=== PATIENT | female | born 1935 ===

== ENCOUNTER → 2018-12-24 10:47 | Outpatient (CLI) | payer MEDICARE, SELFPAY ==
--- NOTE | 2018-12-24 | DI.CT.S_ITS ---
PROCEDURE: CT ABDOMEN PELVIS W CON INDICATIONS: EPIGASTRIC AND LEFT LOWER QUAD PAIN TECHNIQUE: After the administration of oral and intravenous contrast, 5 mm thick sections acquired from the diaphragms to the symphysis. 5 mm thick coronal and sagittal reformats were performed. For radiation dose reduction, the following was used: automated exposure control, adjustment of mA and/or kV according to patient size. COMPARISON: None. FINDINGS: Image quality: Excellent. ABDOMEN: Lung bases: Lung bases are clear. Heart size is normal. Solid organs: Liver is normal in size and enhancement. Gallbladder is surgically absent. Biliary system is non-dilated. Pancreas enhances normally. Spleen is normal in size and enhancement. No adrenal nodules. Kidneys are normal in size and enhancement, without hydronephrosis. Occasional small corticomedullary cystic structures. Peritoneum and bowel: Distal stomach wall demonstrates mild circumferential thickening. The stomach is otherwise fairly decompressed. No perigastric inflammation. The small bowel, and colon loops are normal in caliber and wall thickness. Occasional sigmoid diverticulosis. No free fluid or air. Nodes and vessels: No retroperitoneal or mesenteric adenopathy. Aorta and inferior vena cava are normal in caliber. Moderate calcific atherosclerosis. Miscellaneous: No ventral hernias. PELVIS: Genitourinary: Bladder wall thickness is normal. The uterus is age-appropriate. The pelvic floor demonstrates mild laxity with prolapse of the rectum. Miscellaneous: No inguinal hernias small bilateral inguinal lymph nodes. Bones: No suspicious bony lesions. Severe degenerative disc height loss in the thoracolumbar region. No vertebral body compression fractures. IMPRESSION: 1. Changes of mild wall thickening of the gastric antrum suggesting peptic ulcer disease. Correlate clinically and consider upper endoscopy if indicated. 2. Occasional sigmoid diverticulosis without acute diverticulitis. 3. Post cholecystectomy without significant horn expected biliary dilatation. 4. Pelvic floor laxity with probable mild rectal prolapse. Correlate clinically. Dictated by: Montserrat Whitten M.D. on 12/24/2018 at 14:57 Approved by: Montserrat Whitten M.D. on 12/24/2018 at 15:06
== END ==
PROVIDERS: PCP Family Medicine; Visit Provider Internal Medicine Gastroenterology
DX: R10.13 Epigastric pain (principal); R10.32 Left lower quadrant pain; R19.8 Other specified symptoms and signs involving the digestive system and abdomen; N81.89 Other female genital prolapse; K57.30 Diverticulosis of large intestine without perforation or abscess without bleeding; Z90.49 Acquired absence of other specified parts of digestive tract
CPT/HCPCS: 74177; Q9967

== ENCOUNTER → 2020-07-20 15:45 | Outpatient (CLI) | payer MEDICARE, SELFPAY | PROVIDERS: PCP Family Medicine; Visit Provider Physician Assistant Medical | DX: R68.83 Chills (without fever) (principal) | CPT/HCPCS: 87086 ==

== ENCOUNTER 2020-08-10 13:35 | Inpatient (IN) | payer MEDICARE, SELFPAY ==
[2020-08-10] VITALS (14 sets, daily range): BP systolic 177–220; BP diastolic 61–91; PULSE 40–75; RESP 16–38; TEMP 35.9–36.7; O2SAT 95–99; BMI 31.2
--- NOTE | 2020-08-10 13:49 | DI.RAD.S_ITS ---
PROCEDURE: XR CHEST 1V INDICATIONS: chest pain TECHNIQUE: One view of the chest was acquired. COMPARISON: [facility] ([place]), CR, XR CHEST 2V, 07/20/2020, 16:05. FINDINGS: Surgical changes and devices: None. Lungs and pleura: Lungs are large in volume, and there is a chronic interstitial prominence but no definite source of new chest pain is seen.. No pleural effusions or pneumothorax. Mediastinum: Mediastinal contours appear normal. Heart size is normal. Bones and chest wall: No suspicious bony lesions. Overlying soft tissues appear unremarkable. IMPRESSION: Suspect COPD, but no source of new chest pain is seen. Dictated by: Donny Dorsey M.D. on 08/10/2020 at 15:07 Approved by: Donny Dorsey M.D. on 08/10/2020 at 15:07
[2020-08-10 13:58] LABS: Add Manual Diff / Slide Review NO; Basophils Absolute Auto 100 /uL (0-100); Basophils Percent Auto 1.1 % (0-2); Eosinophils Absolute Auto 100 /uL (0-450); Eosinophils Percent Auto 0.9 % (2-4); Hematocrit 29.9 % (36-46); Hemoglobin 9.8 g/dL (12.0-16.0); Lymphocytes Absolute Auto 2700 /uL (1100-4500); Lymphocytes Percent Auto 32.7 % (25-40); Mean Corpuscular HGB Conc 32.8 % (30-36); Mean Corpuscular Hemoglobin 30.9 PG (26-34); Mean Corpuscular Volume 94.2 fL (80-100); Monocytes Absolute Auto 600 /uL (0-900); Monocytes Percent Auto 7.7 % (3-14); Neutrophils Absolute Auto 4700 /uL (1500-7000); Neutrophils Percent Auto 57.6 % (50-75); Platelet Count 238 X10^3/uL (150-400); Red Blood Cell Count 3.17 X10^6/uL (4.0-5.2); Red Cell Distribution Width 12.8 % (11.6-14.8); White Blood Cell Count 8.2 X10^3/uL (4.5-11.0)
--- NOTE | 2020-08-10 14:05 | PC.NURSE ---
Pt started on hydralazine and labetolol 08/05/20. Pt is feeling SOB with exertion and lying down. Pt having what she describes as palpiation feeling in chest,denies pain. Pt also having urinary retention. Pt arrived here today hypertensive bp over 200 systolic.
[2020-08-10 14:09] LABS: Alanine Aminotransferase 28 IU/L (<35); Albumin 3.8 g/dL (3.5-5.0); Albumin Globulin Ratio 1.2 (1.0-2.8); Alkaline Phosphatase 61 U/L (38-126); Aspartate Aminotransferase 32 IU/L (14-36); BUN Creatinine Ratio 18.6 (6-22); Bilirubin Total 0.3 mg/dL (0.2-1.3); Blood Urea Nitrogen 48 mg/dL (7-17); Carbon Dioxide 16 mmol/L (22-32); Chloride 99 mmol/L (98-107); Creatine Kinase 87 U/L (30-135); Estimated Glomerular Filt Rate 17.6 mL/min (>60); Globulin 3.2 g/dL (1.7-4.1); Glucose 238 mg/dL (80-110); HEMOLYSIS 36 (0-50); Lipase 139 U/L (23-300); Sodium 126 mmol/L (137-145)
[2020-08-10 14:16] LABS: Potassium 5.6 mmol/L (3.4-5.1)
--- NOTE | 2020-08-10 14:16 | ED_ITS ---
HPI - Chest Pain General Chief Complaint: Chest Pain Stated Complaint: on beta blockers, adverse reactions, BP, HR low Time Seen by Provider: 08/10/20 13:52 Source: patient and family Mode of arrival: Wheelchair History of Present Illness HPI narrative: Patient is an 85-year-old female who presents of riding of complaints. Home she was started on labetalol 100 mg by her fuel management handler Dr. Ward is fever 2 days ago. She has taken 2 doses and since then she has gotten dizzy and lightheaded and her blood pressure has decreased to systolic in the 90s. She has not taken any yet today and is noted to be quite hypertensive with systolic persistently in the 200s. She also is more short of breath than usual. Yesterday she started having shortness of breath with exertion with mild chest discomfort. She needed to sleep in a recliner which is very atypical for her. She currently is not having any chest pain. She has no fever chills cough or other symptoms MD complaint: chest pain Related Data Home Medications Medication Instructions Recorded Confirmed amlodipine 2.5 mg tablet 2.5 mg PO DAILY 07/20/20 08/10/20 ascorbic acid (vitamin C) 500 mg 500 mg PO DAILY 07/20/20 08/10/20 capsule aspirin 81 mg chewable tablet 81 mg PO DAILY 07/20/20 08/10/20 furosemide 20 mg tablet 40 mg PO DAILY tab 07/20/20 08/10/20 glimepiride 4 mg tablet 4 mg PO BID tab 07/20/20 08/10/20 hydralazine 10 mg tablet See Rx Instructions .ROUTE 07/20/20 08/10/20 .COMPLEX tab isosorbide mononitrate 30 mg 30 mg PO DAILY 07/20/20 08/10/20 tablet,extended release 24 hr levothyroxine 75 mcg tablet 75 mcg PO QAM 07/20/20 08/10/20 loratadine 10 mg tablet 10 mg PO DAILY 07/20/20 08/10/20 losartan 50 mg tablet 50 mg PO BID 07/20/20 08/10/20 magnesium oxide 500 mg tablet 500 mg PO DAILY 07/20/20 08/10/20 metformin 500 mg tablet 1,000 mg PO BID tab 07/20/20 08/10/20 [id number] tablet 1 tab PO DAILY 07/20/20 08/10/20 pantoprazole 40 mg tablet,delayed 40 mg PO DAILY 07/20/20 08/10/20 release pyridoxine (vitamin B6) 25 mg 25 mg PO DAILY 07/20/20 08/10/20 tablet simvastatin 10 mg tablet 10 mg PO QPM 07/20/20 08/10/20 triamcinolone acetonide 55 mcg 1 spray INTRANASAL DAILY 07/20/20 08/10/20 nasal spray aerosol Allergies Allergy/AdvReac Type Severity Reaction Status Date / Time penicillin G [PENICILLIN G] Allergy Severe Anaphylactic Verified 08/10/20 14:04 Shock Review of Systems Review of Systems ROS Unobtainable: All systems reviewed & are unremarkable except as noted in HPI and below Constitutional Constitutional: Denies chills, Denies fever(s), Denies lethargy and Denies weakness ENT Ears, Nose, Mouth, and Throat: Denies dizziness Cardiovascular Cardiovascular: Reports as per HPI, Reports chest pain (yesterday), Reports syncope, Denies irregular heart rhythm, Reports lightheadedness (not now), Reports dyspnea, Reports dyspnea on exertion and Reports orthopnea Respiratory Respiratory: Reports dyspnea and Reports dyspnea on exertion Gastrointestinal Gastrointestinal: Denies abdominal pain, Denies change in bowel habits, Denies diarrhea, Denies nausea and Denies vomiting Musculoskeletal Musculoskeletal: Denies back pain and Denies myalgias Integumentary/Breasts Skin/Breast: Denies pruritus, Denies erythema, Denies rash and Denies wounds Neurologic Neurologic: Denies dizziness, Reports syncope and Denies weakness Patient History Medical History Diabetes Hypertension Kidney failure Social History household members: none Smoking Status: Never smoker alcohol intake: never Smoking Status: Never smoker Exam Initial Vital Signs Initial Vital Signs: Vital Signs Temperature 98.1 F 08/10/20 13:45 Pulse Rate 52 L 08/10/20 13:45 Respiratory Rate 22 08/10/20 13:45 Blood Pressure 220/87 H 08/10/20 13:45 Pulse Oximetry 97 08/10/20 13:45 GENERAL: Alert pleasant 85-year-old female and in no acute distress. HEENT: Head atraumatic,EOMI, pupils reactive, face symmetric, moist mucous memb ranes CARDIOVASCULAR: Regular rate and rhythm without murmurs, rubs or gallops. RESPIRATORY: Breath sounds equal bilaterally, no wheezes rales or rhonchi. ABDOMEN: Soft, nontender. Normoactive bowel sounds all 4 quadrants. No guarding or rebound. EXTREMITIES: Normal range of motion, no clubbing or edema. Neurovascularly intact NEUROLOGICAL: Alert and oriented x4.Normal gait and speech. SKIN: Warm, dry, no laceration, no petechiae, no rashes or lesions. Course Orders Ordered: ED Orders 08/10/20 13:49 XR chest 1V Stat EKG-12 Lead Stat 08/10/20 13:52 Complete Blood Count AUTO DIFF Stat Comprehensive Metabolic Panel Stat D Dimer Stat Lipase Stat NT-proBNP (BNP-Adult 18+) Stat Troponin & CK Cardiac Panel Stat 08/10/20 13:58 TSH w/ Reflex to FT4 Stat 08/10/20 14:11 COVID19 - ADMIT ([employer] swab/PCR) Stat Discontinued Medications Amlodipine Besylate (Amlodipine 5 Mg Tablet) 7.5 mg PO NOW ONE Stop: 08/10/20 15:11 Last Admin: 08/10/20 15:20 Dose: 7.5 mg Documented by: HAILEY Furosemide (Furosemide 40 Mg/4 Ml Vial) 20 mg IV NOW ONE Stop: 08/10/20 15:11 Last Admin: 08/10/20 15:20 Dose: 20 mg Documented by: HAILEY Vital Signs Vital signs: Vital Signs - 8 hr 08/10/20 13:45 08/10/20 13:47 08/10/20 14:00 Temperature 98.1 F Pulse Rate 52 L 55 L 47 L Respiratory Rate 22 38 H 23 Blood Pressure 220/87 H Pulse Oximetry 97 98 99 08/10/20 14:01 08/10/20 14:15 08/10/20 14:30 Temperature Pulse Rate 49 L 45 L 42 L Respiratory Rate 25 H 19 21 Blood Pressure 213/91 H 216/84 H Pulse Oximetry 98 99 98 08/10/20 14:31 08/10/20 14:45 08/10/20 15:00 Temperature Pulse Rate 42 L 42 L 40 L Respiratory Rate 22 17 19 Blood Pressure 188/91 H 183/84 H 199/83 H Pulse Oximetry 98 98 98 08/10/20 15:30 Temperature Pulse Rate 61 Respiratory Rate 28 H Blood Pressure Pulse Oximetry 99 MDM - Chest Pain Lab Data Attestation: I reviewed the patient's lab results. Result diagrams: 08/10/20 13:52 08/10/20 13:52 Labs: Lab Results 08/10/20 08/10/20 08/10/20 Range/Units 13:52 13:52 13:52 WBC 8.2 (4.5-11.0) X10^3/uL RBC 3.17 L (4.0-5.2) X10^6/uL Hgb 9.8 L (12.0-16.0) g/dL Hct 29.9 L (36-46) % MCV 94.2 (80-100) fL MCH 30.9 (26-34) PG MCHC 32.8 (30-36) % RDW 12.8 (11.6-14.8) % Plt Count 238 (150-400) X10^3/uL Neut % (Auto) 57.6 (50-75) % Lymph % (Auto) 32.7 (25-40) % [place] % (Auto) 7.7 (3-14) % Eos % (Auto) 0.9 L (2-4) % Baso % (Auto) 1.1 (0-2) % Neut # (Auto) 4700 (6544-3003) /uL Lymph # (Auto) 2700 (2715-5062) /uL [place] # (Auto) 600 (0-900) /uL Eos # (Auto) 100 (0-450) /uL Baso # (Auto) 100 (0-100) /uL D-Dimer (<230) ng/mL Sodium 126 L (137-145) mmol/L Potassium 5.6 H (3.4-5.1) mmol/L Chloride 99 (98-107) mmol/L Carbon Dioxide 16 L (22-32) mmol/L BUN 48 H (7-17) mg/dL Creatinine 2.58 H (0.52-1.04) mg/dL Estimated GFR 17.6 L (>60) mL/min BUN/Creatinine Ratio 18.6 (6-22) Glucose 238 H (80-110) mg/dL Calcium 9.0 (8.4-10.2) mg/dL Total Bilirubin 0.3 (0.2-1.3) mg/dL AST 32 (14-36) IU/L ALT 28 (<35) IU/L Alkaline Phosphatase 61 (38-126) U/L Total Creatine Kinase 87 (30-135) U/L CK-MB (CK-2) TNP CK-MB (CK-2) Rel Index TNP Troponin I 0.019 (0.01-0.034) ng/mL NT-Pro-B Natriuret Pep 2950 H (<450) pg/mL Total Protein 7.0 (6.3-8.2) g/dL Albumin 3.8 (3.5-5.0) g/dL Globulin 3.2 (1.7-4.1) g/dL Albumin/Globulin Ratio 1.2 (1.0-2.8) Lipase 139 (23-300) U/L TSH (0.47-4.68) uIU/mL Urine RBC (0-5/HPF) Urine WBC (0-5/HPF) Ur Squamous Epith Cells (0-5/HPF) Ur Transition Epith Cell (0-5/HPF) Ur Renal Epithelial Cell (0-1/HPF) Urine Bacteria (None) Hyaline Casts (None) Ur Culture Indicated? SARS-CoV-2 (PCR) (Negative) 08/10/20 08/10/20 08/10/20 Range/Units 13:52 13:58 14:11 WBC (4.5-11.0) X10^3/uL RBC (4.0-5.2) X10^6/uL Hgb (12.0-16.0) g/dL Hct (36-46) % MCV (80-100) fL MCH (26-34) PG MCHC (30-36) % RDW (11.6-14.8) % Plt Count (150-400) X10^3/uL Neut % (Auto) (50-75) % Lymph % (Auto) (25-40) % [place] % (Auto) (3-14) % Eos % (Auto) (2-4) % Baso % (Auto) (0-2) % Neut # (Auto) (4376-0754) /uL Lymph # (Auto) (5617-6320) /uL [place] # (Auto) (0-900) /uL Eos # (Auto) (0-450) /uL Baso # (Auto) (0-100) /uL D-Dimer 523 H (<230) ng/mL Sodium (137-145) mmol/L Potassium (3.4-5.1) mmol/L Chloride (98-107) mmol/L Carbon Dioxide (22-32) mmol/L BUN (7-17) mg/dL Creatinine (0.52-1.04) mg/dL Estimated GFR (>60) mL/min BUN/Creatinine Ratio (6-22) Glucose (80-110) mg/dL Calcium (8.4-10.2) mg/dL Total Bilirubin (0.2-1.3) mg/dL AST (14-36) IU/L ALT (<35) IU/L Alkaline Phosphatase (38-126) U/L Total Creatine Kinase (30-135) U/L CK-MB (CK-2) CK-MB (CK-2) Rel Index Troponin I (0.01-0.034) ng/mL NT-Pro-B Natriuret Pep (<450) pg/mL Total Protein (6.3-8.2) g/dL Albumin (3.5-5.0) g/dL Globulin (1.7-4.1) g/dL Albumin/Globulin Ratio (1.0-2.8) Lipase (23-300) U/L TSH 1.61 (0.47-4.68) uIU/mL Urine RBC (0-5/HPF) Urine WBC (0-5/HPF) Ur Squamous Epith Cells (0-5/HPF) Ur Transition Epith Cell (0-5/HPF) Ur Renal Epithelial Cell (0-1/HPF) Urine Bacteria (None) Hyaline Casts (None) Ur Culture Indicated? SARS-CoV-2 (PCR) Negative (Negative) 08/10/20 Range/Units 15:20 WBC (4.5-11.0) X10^3/uL RBC (4.0-5.2) X10^6/uL Hgb (12.0-16.0) g/dL Hct (36-46) % MCV (80-100) fL MCH (26-34) PG MCHC (30-36) % RDW (11.6-14.8) % Plt Count (150-400) X10^3/uL Neut % (Auto) (50-75) % Lymph % (Auto) (25-40) % [place] % (Auto) (3-14) % Eos % (Auto) (2-4) % Baso % (Auto) (0-2) % Neut # (Auto) (7546-3794) /uL Lymph # (Auto) (6953-7806) /uL [place] # (Auto) (0-900) /uL Eos # (Auto) (0-450) /uL Baso # (Auto) (0-100) /uL D-Dimer (<230) ng/mL Sodium (137-145) mmol/L Potassium (3.4-5.1) mmol/L Chloride (98-107) mmol/L Carbon Dioxide (22-32) mmol/L BUN (7-17) mg/dL Creatinine (0.52-1.04) mg/dL Estimated GFR (>60) mL/min BUN/Creatinine Ratio (6-22) Glucose (80-110) mg/dL Calcium (8.4-10.2) mg/dL Total Bilirubin (0.2-1.3) mg/dL AST (14-36) IU/L ALT (<35) IU/L Alkaline Phosphatase (38-126) U/L Total Creatine Kinase (30-135) U/L CK-MB (CK-2) CK-MB (CK-2) Rel Index Troponin I (0.01-0.034) ng/mL NT-Pro-B Natriuret Pep (<450) pg/mL Total Protein (6.3-8.2) g/dL Albumin (3.5-5.0) g/dL Globulin (1.7-4.1) g/dL Albumin/Globulin Ratio (1.0-2.8) Lipase (23-300) U/L TSH (0.47-4.68) uIU/mL Urine RBC None seen (0-5/HPF) Urine WBC 5-10/hpf H (0-5/HPF) Ur Squamous Epith Cells 0-1 /hpf (0-5/HPF) Ur Transition Epith Cell 1-5/hpf (0-5/HPF) Ur Renal Epithelial Cell 0-1/hpf (0-1/HPF) Urine Bacteria None seen (None) Hyaline Casts 0-1/lpf (None) Ur Culture Indicated? Specimen cultured SARS-CoV-2 (PCR) (Negative) Urine Dip Bedside Urine Glucose Negative Bedside Urine Bilirubin - Negative Bedside Urine Ketone - Negative Urine Specific [place] 1.025 Bedside Urine Occult Blood - Negative Bedside Urine pH 6.0 Bedside Urine Protein +++ 300 Bedside Urine Urobilinogen - Negative Bedside Urine Nitrite - Negative Bedside Urine Leukocytes - Negative Esterase Imaging Data Chest x-ray: Radiologist's Impression: PROCEDURE: XR CHEST 1V INDICATIONS: chest pain TECHNIQUE: One view of the chest was acquired. COMPARISON: [facility] ([place]), CR, XR CHEST 2V, 07/20/2020, 16:05. FINDINGS: Surgical changes and devices: None. Lungs and pleura: Lungs are large in volume, and there is a chronic interstitial prominence but no definite source of new chest pain is seen.. No pleural effusions or pneumothorax. Mediastinum: Mediastinal contours appear normal. Heart size is normal. Bones and chest wall: No suspicious bony lesions. Overlying soft tissues appear unremarkable. IMPRESSION: Suspect COPD, but no source of new chest pain is seen. Dictated by: Donny Dorsey M.D. on 08/10/2020 at 15:07 ECG Data Attestation: I personally reviewed and interpreted this ECG as follows: Interpretation: Normal sinus rhythm rate 44 p.r. interval 158 QRS is [address] changes or T-wave inversions MDM Narrative Medical decision making narrative: The patient initially bradycardic in the 40s and significantly hypertensive persistently with systolic in the 200s. I spoke with Cardiology who states stopping labetalol and increasing amlodipine. Patient's renal function has worsened daughter has records from [facility] 05/17/2020 creatinine at that time was 1.8, BUN 31, sodium 132, potassium 5.4, chloride 100, bicarb 22 and glucose 118. Creatinine today is elevated at 2.6 with an elevated BUN of 48 and sodium of 126. Patient is noted to still be quite hypertensive with worsening creatinine. Differential diagnosis includes congestive heart failure, hypertensive emergency with increasing creatinine Discussed with Dr. urias who accepts patient for admission Discharge Plan Departure Patient Disposition: Admitted as Observation Clinical Impression: Hypertensive urgency, Acute kidney injury, Diastolic congestive heart failure Admit Date/Time: 08/10/20 16:04 Admit Provider: Jacy Urias
[2020-08-10 14:17] LABS: NT-proBNP (BNP-Adult 18+) 2950 pg/mL (<450)
[2020-08-10 14:20] LABS: Troponin I 0.019 ng/mL (0.01-0.034)
[2020-08-10 14:40] LABS: D Dimer 523 ng/mL (<230)
[2020-08-10 15:11] LABS: COVID19 - ADMIT (NP swab/PCR) Negative (Negative)
[2020-08-10 15:13] LABS: TSH w/ Reflex to FT4 1.61 uIU/mL (0.47-4.68)
[2020-08-10] MEDS: FUROSEMIDE 40 MG/4 ML VIAL 20 MG IV (15:20)
[2020-08-10] MEDS: AMLODIPINE 5 MG TABLET 7.5 MG PO (15:20)
[2020-08-10 17:45] LABS: Bacteria Urine None Seen; RBC Urine None Seen (0-5/HPF)
[2020-08-10 17:59] LABS: WBC Urine 5-10/HPF (0-5/HPF)
[2020-08-10 18:00] LABS: Renal Epithelial Cells Urine 0-1/HPF (0-1/HPF); Transitional Epi Cells Urine 1-5/HPF (0-5/HPF)
[2020-08-10 18:01] LABS: Culture Indicated Urine Specimen Cultured; Hyaline Casts Urine 0-1/LPF; Squamous Epithelial Cell Urine 0-1 /HPF (0-5/HPF)
--- NOTE | 2020-08-10 18:57 | PC.NURSE ---
Addendum entered by Olivia Cruz R.N. 08/10/20 22:40: Pt up to bathroom for bowel movement and states pain is improving to epigastric region. Back into bed and lasix administered with commode at bedside for pt's use overnight. Provided pt with brief which pt is able to place on self. Encouraged to call for needs. Foods and oral fluids provided as ordered and per pt request. Addendum entered by Olivia Cruz R.N. 08/10/20 20:13: Hospitalist Gonzalez in to see patient. Addendum entered by Olivia Cruz R.N. 08/10/20 20:04: Resting quietly in bed with eyes closed. Dr. Urias has reviewed EKG. Awaiting stat cardiac enzyme result. Will use commode moving forward. Addendum entered by Olivia Cruz R.N. 08/10/20 19:09: Lab in to draw stat labs. Original Note: Pt to room 225 from E.R. via stretcher. Is slightly hard of hearing, but able to make needs and wants known to staff members. Physical assessment completed and when asked about pain, pt states having gastric pain. Places hand on epigastric region. Pt states experienced shortness of breath panting upon return to bed following toileting. Pt reports these complaints are improving with rest. LEATHER SOFTENER, Klaudia, evaluates telemetry strip and brings it to the attention of this software writer. Dr. Urias was given telemetry strip as well as informed of pt's symptoms. R.T. called and stat 12 lead EKG completed and provided to Dr. Urias.
[2020-08-10 19:52] LABS: Creatine Kinase 106 U/L (30-135)
[2020-08-10 20:04] LABS: Troponin I 0.018 ng/mL (0.01-0.034)
[2020-08-10 20:08] LABS: CKMB % Relative Index 1.1 % (1.5-5.0); Creatine Kinase MB 1.21 ng/mL (<2.37)
[2020-08-10] MEDS: SODIUM CHLORIDE 0.9% FLUSH 10 ML IV ×2 (20:41→21:49)
[2020-08-10 21:22] LABS: Magnesium 1.7 mg/dL (1.6-2.3); Phosphorous 4.8 mg/dL (2.8-4.1)
[2020-08-10 21:37] LABS: Hemoglobin A1C% w Est Avg Glu 6.7 % (4.0-6.0)
--- NOTE | 2020-08-10 21:40 | P.HP_ITS ---
History of Present Illness History of Present Illness Date Patient Seen: 08/10/20 Time Patient Seen: 20:30 Chief complaint: on beta blockers, adverse reactions, BP, HR low Narrative: Tom Gandhi is an 85 y.o. female with a history of Grade 2 diastolic heart failure, resistent hypertension, diabetes type 2 presented from [facility] after being referred by the clinic nurse to the ED with a hypertensive urgency and a new acute kidney injury. She stated she was recently started on a beta- janet and has felt nauseous for the past 3 days and was sick to my stomach since yesterday. She was initiated on labetalol 100 mg by her trade recruiter Dr. Hess 2 days ago. She has taken 2 doses and since then, has gotten dizzy and lightheaded and daughter stated her blood pressure has decreased to systolic in the 90s. She has not taken any yet today and is noted to be quite hypertensive with systolic persistently in the 200s. She complains of being shorter of breath than usual. Stated she has had lower than usual appetite and has chronic nocturnal leg cramps. Yesterday she started having shortness of breath with exertion with mild chest discomfort. She needed to sleep in a recliner which is not usual for her. She currently is not having any chest pain. She has no fever chills cough, dysurea, diarrhea or constipation. Today's EKG indicated a left bundle branch block, per note from , her trade recruiter, she had a left bundle branch block in an EKG done in July of 2019 which at that time was new. Chest x-ray ordered in the emergency department indicated large lung volumes suggesting COPD an elderly female without a smoking history. She is afebrile, blood pressure 179/70 it had been as high as 220/87 in the emergency department, heart rate 64, respiratory rate 16, oxygen saturation of 99% on room air, she weighs 71.6 kg with a BMI of 31.2. She has mildly anemia at with a hemoglobin and hematocrit of 9.8 and 29.9 respectively, platelet count is 238, D-dimer was 523 which is negative for patient of her age, sodium 126, potassium 5.6, chloride 99, CO2 16, BUN 48, creatinine 2.58 with a GFR of 17.6, glucose 238, hemoglobin A1c is 6.7, phosphorus is 4.8, CK-MB was 1.1, proBNP was 29 50, UA was negative for UTI and COVID-19 PCR is negative. Patient's med records were scanned into the chart which included labs and an encounter from April of 2020 as well as a note from Dr. Hess. She has been on multiple blood pressure medications, not always maxed out and he commented that it was hard to keep her blood pressure under good control without her becoming symptomatic. She had impaired renal function as of April of this year with a creatinine of 1.18 and a GFR of 42, it is significantly reduced from this today and she also has an elevated phosphorus. I did discuss her case with Dr. Talamantes, on-call trade recruiter at [facility] cardiology and he recommended diuresis, controlling her blood pressure, and treating her ELIAZAR. Dr. Hess noted that she had grade 2 diastolic dysfunction in an echocardiogram done in 2017 which we do not have access to. Patient History Medical History (HFpEF) heart failure with preserved ejection fraction Diabetes History of anesthesia reaction Hypertension Hypothyroidism Kidney failure Surgical History History of cholecystectomy History of right knee joint replacement Family & Social History Family History Mother History of CVA (cerebrovascular accident) Father Myocardial infarction Social History: household members none Prior Living Arrangements House Safety & Behavioral: Feels Safe in Current Yes Environment Been Physically Hurt or No Threatened By a Person Suicidal Ideation Description None Suicide Plan Description No Plan Tobacco & Substance use: Smoking Status Never smoker alcohol intake never Substance Use Type does not use Meds Home Medications and Allergies Home Medications Medication Instructions Recorded Confirmed Type amlodipine 2.5 mg tablet 2.5 mg PO DAILY 07/20/20 08/10/20 History ascorbic acid (vitamin C) 500 mg 500 mg PO DAILY 07/20/20 08/10/20 History capsule aspirin 81 mg chewable tablet 81 mg PO DAILY 07/20/20 08/10/20 History furosemide 20 mg tablet 40 mg PO DAILY tab 07/20/20 08/10/20 History glimepiride 4 mg tablet 4 mg PO BID tab 07/20/20 08/10/20 History hydralazine 10 mg tablet See Rx Instructions .ROUTE 07/20/20 08/10/20 History .COMPLEX tab isosorbide mononitrate 30 mg 30 mg PO DAILY 07/20/20 08/10/20 History tablet,extended release 24 hr levothyroxine 75 mcg tablet 75 mcg PO QAM 07/20/20 08/10/20 History loratadine 10 mg tablet 10 mg PO DAILY 07/20/20 08/10/20 History losartan 50 mg tablet 50 mg PO BID 07/20/20 08/10/20 History magnesium oxide 500 mg tablet 500 mg PO DAILY 07/20/20 08/10/20 History metformin 500 mg tablet 1,000 mg PO BID tab 07/20/20 08/10/20 History elcapacrmtbh-szwmgcjo-fmvjrr tablet 1 tab PO DAILY 07/20/20 08/10/20 History pantoprazole 40 mg tablet,delayed 40 mg PO DAILY 07/20/20 08/10/20 History release pyridoxine (vitamin B6) 25 mg 25 mg PO DAILY 07/20/20 08/10/20 History tablet simvastatin 10 mg tablet 10 mg PO QPM 07/20/20 08/10/20 History triamcinolone acetonide 55 mcg 1 spray INTRANASAL DAILY 07/20/20 08/10/20 History nasal spray aerosol Allergies Allergy/AdvReac Type Severity Reaction Status Date / Time penicillin G [PENICILLIN G] Allergy Severe Anaphylactic Verified 08/10/20 14:04 Shock Review of Systems Review of Systems ROS: Yes All systems reviewed with the patient and are negative except as otherwise documented Exam Vital Signs (past 8 hours): - 08/10/20 13:45 08/10/20 13:47 08/10/20 14:00 Temperature 98.1 F Pulse Rate 52 L 55 L 47 L Respiratory Rate 22 38 H 23 Blood Pressure 220/87 H Pulse Oximetry 97 98 99 08/10/20 14:01 08/10/20 14:15 08/10/20 14:30 Temperature Pulse Rate 49 L 45 L 42 L Respiratory Rate 25 H 19 21 Blood Pressure 213/91 H 216/84 H Pulse Oximetry 98 99 98 08/10/20 14:31 08/10/20 14:45 08/10/20 15:00 Temperature Pulse Rate 42 L 42 L 40 L Respiratory Rate 22 17 19 Blood Pressure 188/91 H 183/84 H 199/83 H Pulse Oximetry 98 98 98 08/10/20 15:30 08/10/20 18:08 08/10/20 20:04 Temperature 97.5 F L 96.6 F L Pulse Rate 61 75 64 Respiratory Rate 28 H 18 16 Blood Pressure 215/79 H 179/70 H Pulse Oximetry 99 95 99 Oxygen Delivery Method Room Air Narrative Exam Narrative: Gen: Alert, oriented, chronically ill appearing 85 y.o. [place] female, NAD HEENT: normocephalic, atraumatic, conjunctiva clear, sclera non-icteric, oral mucosa pink and moist Neck: supple, full ROM, no JVD, trachea is midline Resp: Lungs CTA, non-labored breathing CV: RRR, no murmur or rubs Abd: soft, non-tender, normoactive BTs Skin: no lesions or rashes, dry and intact Neuro: Alert and oriented X 4 w/no focal deficits. Speech clear and coherent. Extremities: mild LE edema, moves all 4 extremities, is ambulatory, negative Miranda?s sign Psyche: Very pleasant, normal mood and affect. Objective Labs Result Diagrams: 08/10/20 13:52 08/10/20 13:52 Labs: Laboratory Results - last 24 hr 08/10/20 08/10/20 08/10/20 13:52 13:52 13:52 WBC 8.2 RBC 3.17 L Hgb 9.8 L Hct 29.9 L MCV 94.2 MCH 30.9 MCHC 32.8 RDW 12.8 Plt Count 238 Neut % (Auto) 57.6 Lymph % (Auto) 32.7 [place] % (Auto) 7.7 Eos % (Auto) 0.9 L Baso % (Auto) 1.1 Neut # (Auto) 4700 Lymph # (Auto) 2700 [place] # (Auto) 600 Eos # (Auto) 100 Baso # (Auto) 100 D-Dimer Sodium 126 L Potassium 5.6 H Chloride 99 Carbon Dioxide 16 L BUN 48 H Creatinine 2.58 H Estimated GFR 17.6 L BUN/Creatinine Ratio 18.6 Glucose 238 H Hemoglobin A1c Calcium 9.0 Phosphorus Magnesium Total Bilirubin 0.3 AST 32 ALT 28 Alkaline Phosphatase 61 Total Creatine Kinase 87 CK-MB (CK-2) TNP CK-MB (CK-2) Rel Index TNP Troponin I 0.019 NT-Pro-B Natriuret Pep 2950 H Total Protein 7.0 Albumin 3.8 Globulin 3.2 Albumin/Globulin Ratio 1.2 Lipase 139 TSH Urine RBC Urine WBC Ur Squamous Epith Cells Ur Transition Epith Cell Ur Renal Epithelial Cell Urine Bacteria Hyaline Casts Ur Culture Indicated? SARS-CoV-2 (PCR) 08/10/20 08/10/20 08/10/20 13:52 13:52 13:58 WBC RBC Hgb Hct MCV MCH MCHC RDW Plt Count Neut % (Auto) Lymph % (Auto) [place] % (Auto) Eos % (Auto) Baso % (Auto) Neut # (Auto) Lymph # (Auto) [place] # (Auto) Eos # (Auto) Baso # (Auto) D-Dimer 523 H Sodium Potassium Chloride Carbon Dioxide BUN Creatinine Estimated GFR BUN/Creatinine Ratio Glucose Hemoglobin A1c 6.7 H Calcium Phosphorus Magnesium Total Bilirubin AST ALT Alkaline Phosphatase Total Creatine Kinase CK-MB (CK-2) CK-MB (CK-2) Rel Index Troponin I NT-Pro-B Natriuret Pep Total Protein Albumin Globulin Albumin/Globulin Ratio Lipase TSH 1.61 Urine RBC Urine WBC Ur Squamous Epith Cells Ur Transition Epith Cell Ur Renal Epithelial Cell Urine Bacteria Hyaline Casts Ur Culture Indicated? SARS-CoV-2 (PCR) 08/10/20 08/10/20 08/10/20 14:11 15:20 19:23 WBC RBC Hgb Hct MCV MCH MCHC RDW Plt Count Neut % (Auto) Lymph % (Auto) [place] % (Auto) Eos % (Auto) Baso % (Auto) Neut # (Auto) Lymph # (Auto) [place] # (Auto) Eos # (Auto) Baso # (Auto) D-Dimer Sodium Potassium Chloride Carbon Dioxide BUN Creatinine Estimated GFR BUN/Creatinine Ratio Glucose Hemoglobin A1c Calcium Phosphorus Magnesium Total Bilirubin AST ALT Alkaline Phosphatase Total Creatine Kinase 106 CK-MB (CK-2) 1.21 CK-MB (CK-2) Rel Index 1.1 L Troponin I 0.018 NT-Pro-B Natriuret Pep Total Protein Albumin Globulin Albumin/Globulin Ratio Lipase TSH Urine RBC None seen Urine WBC 5-10/hpf H Ur Squamous Epith Cells 0-1 /hpf Ur Transition Epith Cell 1-5/hpf Ur Renal Epithelial Cell 0-1/hpf Urine Bacteria None seen Hyaline Casts 0-1/lpf Ur Culture Indicated? Specimen cultured SARS-CoV-2 (PCR) Negative 08/10/20 08/10/20 19:23 19:23 WBC RBC Hgb Hct MCV MCH MCHC RDW Plt Count Neut % (Auto) Lymph % (Auto) [place] % (Auto) Eos % (Auto) Baso % (Auto) Neut # (Auto) Lymph # (Auto) [place] # (Auto) Eos # (Auto) Baso # (Auto) D-Dimer Sodium Potassium Chloride Carbon Dioxide BUN Creatinine Estimated GFR BUN/Creatinine Ratio Glucose Hemoglobin A1c Calcium Phosphorus 4.8 H Magnesium 1.7 Total Bilirubin AST ALT Alkaline Phosphatase Total Creatine Kinase CK-MB (CK-2) CK-MB (CK-2) Rel Index Troponin I NT-Pro-B Natriuret Pep Total Protein Albumin Globulin Albumin/Globulin Ratio Lipase TSH Urine RBC Urine WBC Ur Squamous Epith Cells Ur Transition Epith Cell Ur Renal Epithelial Cell Urine Bacteria Hyaline Casts Ur Culture Indicated? SARS-CoV-2 (PCR) Assessment & Plan Assessment & Plan narrative: Tom Gandhi will be admitted for treatment and management of hypertensive urgency and and further workup of acute kidney injury unknown if with CKD. 1. Hypertensive urgency, acute, present on admission * She will receive as needed IV labetalol as well as IV Lasix for diuresis * Telemetry and continuous pulse oximetry, monitor for shortness of breath * First 2 troponins were negative 2. Acute kidney injury, present on admission with a creatinine of 2.58 and a GFR of 17.6 * This is concerning for contributing to her resistant hypertension. I have ordered a renal ultrasound to rule out MINOO. * She has an elevated phosphorus of 4.8, she is not taking bisphosphonates or chemotherapy that could cause hyperphosphatemia * I have ordered a PTH * May need nephrology consult. 3. History of Grade 2 heart failure * I have ordered a complete echocardiogram for the morning * Discussion with Dr. Talamantes who recommended pharmacological stress testing, will defer to day team on this * She is ordered for morning dose of IV Lasix 40 mg. She received IV Lasix 20 mg in the ED. 4. Diabetes type 2 with apparent good control since April of this year * Her A1c was 6.7 down from 7.1 in April * She will be on low-dose insulin correction scale 5. Hyponatremia, acute, present on admission * In April she had a low sodium of 132 and today it is 126. * I have her on a fluid restriction of 1200 mL per day with a normal sodium carb controlled diet * Urine sodium, urine and serum osmolality pending. VTE prophylaxis: Wells risk score: 0 Heparin 5000 units subcu b.i.d. Consults: none, may require nephrology and cardiology consult. Patient is admitted under inpatient status with expected length of stay greater than 2 midnights due to severity of presenting symptoms, risk of adverse event, and complexity of treatment plan. FEN: IV saline lock, normal sodium , C/BMP and magnesium in the am. Dispo: probable discharge to home Code Status: Full as discussed with patient. Her daughter Raquel Gandhi is her POA and surrogate. Scores Wells' Criteria for PE Clinical signs and symptoms of DVT: No PE is #1 Dx or equally likely: No Heart rate > 100: No Immobilization at least 3 days or surg in previous 4 weeks: No History of PE or DVT: No Hemoptysis: No Malignancy w/Treatment within 6 months or palliative: No Wells' PE Score total: 0 Quality MIPS - Admit I confirm the patient?s Advance Care Plan is present, Code status is documented, Surrogate decision maker is in patient?s record [If Yes, STOP here]: Yes MIPS - DC The patient has current or prior documentation of left ventricular ejection fraction (LVEF) less than 40%, or moderate or severely depressed left ventricular systolic function.: No A. The patient was prescribed or already taking an Angiotensin-Converting Enzyme (CECELIA) Inhibitor, or Angiotensin Receptor Janet (ARB).: Yes B. The patient was prescribed or already taking a beta-janet. [If Yes to Both A & B, STOP here]: Yes Patient not prescribed/taking CECELIA or ARB for medical/patient/system reason(s) including (ex: allergy, intolerance, contraindication).: Holding due to new ELIAZAR. Patient not prescribed/taking Beta-janet for medical/patient/system reason(s) including (ex: allergy, intolerance, contraindication).: Holding as patient is having side effects from beta blockers
[2020-08-10] MEDS: ATORVASTATIN 20 MG TABLET 10 MG PO (21:47)
[2020-08-10] MEDS: HEPARIN 5,000 UNIT/ML VIAL 5000 UNIT SUBCUT (21:48)
[2020-08-10] MEDS: FUROSEMIDE 40 MG/4 ML VIAL IV (21:49)
[2020-08-11] VITALS (9 sets, daily range): BP systolic 134–187; BP diastolic 52–76; PULSE 63–73; RESP 14–18; TEMP 36.3–37; O2SAT 94–99
--- NOTE | 2020-08-11 | DI.ECHO.S_ITS ---
[facility]---------+ [facility] +---------+ : : [address] : [address] : : : : [id number] : : : : Phone: [phone]+ Echocardiogram Report + + :Name: GRETTA LOPES Study Date: 08/11/2020 Height: 61 in : :[facility] ReadingLocation: Weight: 157 lb : : Gender: Female BSA: 1.7 m2 : :: 1935 Age: 85 yrs BP: 179/70 mmHg: :Reason For Study: HISTORY OF GRADE TWO HEART FAILURE : :Ordering Physician: Karina ROQUEformed By: Ekta Bingham : :Referring: ROSI ROQUE : + + Interpretation Summary The ejection fraction is estimated to be 60-65%. There is mild mitral regurgitation. There is mild aortic regurgitation. Procedure: A two-dimensional transthoracic echocardiogram with color flow and Doppler was performed. The study quality was technically adequate. There is no prior echocardiogram noted for this patient. The patient was in sinus rhythm with heart rates between 59-75 bpm during the exam. Left Ventricle: The left ventricle is normal in size. There is mild concentric left ventricular hypertrophy. Proximal septal thickening is noted. There is no echo evidence for significant left ventricular outflow tract obstruction. The ejection fraction is estimated to be 60-65%. Left ventricular wall motion is normal. Diastolic parameters suggest a pseudonormalization pattern, consistent with probable elevated filling pressures. Right Ventricle: The right ventricle is normal size. Right ventricular systolic function is mildly reduced. Atria: The left atrium is mildly dilated. Right atrial size is normal. There is no Doppler evidence for an interatrial shunt. Mitral Valve: The mitral valve is normal in structure and function. There is mild mitral annular calcification. There is mild mitral regurgitation. Aortic Valve: The aortic valve is trileaflet. The aortic valve opens well. The aortic valve is slightly calcified. There is no aortic valve stenosis. There is mild aortic regurgitation. Tricuspid Valve: The tricuspid valve is normal in structure and function. There is mild tricuspid regurgitation. Pulmonary artery pressures cannot be estimated because of the lack of a measurable TR jet velocity but the IVC suggests a CVP of around 3 mmHg. Pulmonic Valve: The pulmonic valve leaflets are thin and pliable; valve motion is normal. There is no pulmonic valvular regurgitation. Great Vessels: The aortic root is normal size. The ascending aorta could not be visualized. The IVC is of normal diameter and collapses greater than 50% with a sniff. This suggests a low right atrial pressure of 3 mm Hg. Pericardium/ Pleura There is no pericardial effusion. There is no pleural effusion. MMode/2D Measurements & Calculations LVIDd: 4.2 cm LVOT diam: 1.9 cm LVIDs: 2.7 cm Ao root diam: 2.6 cm FS: 36.4 % Ao Arch Diam (Prox Trans): 2.1 cm IVSd: 1.2 cm LVPWd: 1.1 cm LV hussein. diameter/BSA (cm/m^2): 2.5 LV sys. diameter/BSA (cm/m^2): 1.6 LA A2 area: 20.6 cm2 RA long axis: 4.6 cm LA A4 area: 16.7 cm2 RA area: 14.0 cm2 LA length (vol): 4.9 cm RA vol: 36.7 ml LA vol: 59.7 ml RA : 21.6 ml/m2 LA vol index: 35.0 ml/m2 IVC diam: 1.6 cm RVD1 (basal): 2.9 cm TAPSE: 1.4 cm Doppler Measurements & Calculations Ao V2 max: 121.5 cm/sec LVOT Max Jordi: 100.5 cm/sec Ao V2 mean: 82.9 cm/sec LV V1 max P.0 mmHg Ao max P.9 mmHg LV V1 VTI: 23.5 cm Ao mean P.1 mmHg RITCHIE(I,D): 2.2 cm2 Ao V2 VTI: 29.3 cm RITCHIE(V,D): 2.3 cm2 sev ratio: 0.80 RITCHIE indexed to BSA (cm^2/m^2): 1.3 MV E max jordi: 104.5 cm/sec PA V2 max: 112.9 cm/sec MV A max jordi: 84.4 cm/sec PA V2 mean: 77.9 cm/sec MV E/A: 1.2 PA mean P.7 mmHg Med Peak E' Jordi: 3.9 cm/sec PA pr(Accel): 51.6 mmHg E/E' med: 26.5 Lat Peak E' Jordi: 6.4 cm/sec E/E' lat: 16.3 E/e' average: 21.4 MV dec time: 0.24 sec SV(LVOT): 63.9 ml Reading Physician:01:50 PM
--- NOTE | 2020-08-11 00:01 | DI.US.S_ITS ---
PROCEDURE: US RENAL COMPLETE INDICATIONS: ELIAZAR TECHNIQUE: Real-time scanning was performed of the kidneys and bladder, with image documentation. COMPARISON: , CT, CT ABDOMEN PELVIS W CON, 12/24/2018, 11:42. FINDINGS: Kidneys: Kidneys are normal in size. Right kidney measures 10.2 cm long; left kidney measures 10.6 cm long. Right renal cortical thickness is 1.4 cm; left renal cortical thickness is 1.5 cm. Renal cortical echotexture is normal. No hydronephrosis or nephrolithiasis. No suspicious solid mass lesions. Bladder: Not distended. Limited evaluation. Ureteral jets are not seen. Miscellaneous: No free pelvic fluid. IMPRESSION: No hydronephrosis. Dictated by: Martín Linda M.D. on 08/11/2020 at 9:14 Approved by: Martín Linda M.D. on 08/11/2020 at 9:17
[2020-08-11 00:18] LABS: Sodium Urine Random 10 mmol/L (30-90)
[2020-08-11 01:33] LABS: Creatine Kinase 98 U/L (30-135)
[2020-08-11 01:46] LABS: Troponin I 0.023 ng/mL (0.01-0.034)
[2020-08-11] MEDS: LEVOTHYROXINE 75 MCG TABLET PO (06:52)
--- NOTE | 2020-08-11 07:03 | PC.NURSE ---
C/O headache @ 0615, but declined Tylenol. States if I take pain medication will have,diarrhea. Reported tired, did not sleep well last night up to BSC frequently. No C/O chest pain, dyspnea & no SOB noted. Will cont. POC & monitor.
[2020-08-11 07:30] LABS: Add Manual Diff / Slide Review NO; Basophils Absolute Auto 100 /uL (0-100); Basophils Percent Auto 0.8 % (0-2); Eosinophils Absolute Auto 200 /uL (0-450); Eosinophils Percent Auto 2.8 % (2-4); Lymphocytes Absolute Auto 2000 /uL (1100-4500); Lymphocytes Percent Auto 25.8 % (25-40); Mean Corpuscular HGB Conc 33.2 % (30-36); Mean Corpuscular Hemoglobin 30.8 PG (26-34); Mean Corpuscular Volume 92.7 fL (80-100); Monocytes Absolute Auto 700 /uL (0-900); Monocytes Percent Auto 8.5 % (3-14); Neutrophils Absolute Auto 4700 /uL (1500-7000); Neutrophils Percent Auto 62.1 % (50-75); Platelet Count 267 X10^3/uL (150-400); Red Blood Cell Count 3.56 X10^6/uL (4.0-5.2); Red Cell Distribution Width 13.1 % (11.6-14.8); White Blood Cell Count 7.6 X10^3/uL (4.5-11.0)
[2020-08-11 07:56] LABS: Creatine Kinase 97 U/L (30-135); Magnesium 1.5 mg/dL (1.6-2.3)
[2020-08-11 07:57] LABS: BUN Creatinine Ratio 22.8 (6-22); Blood Urea Nitrogen 45 mg/dL (7-17); Calcium 9.7 mg/dL (8.4-10.2); Carbon Dioxide 24 mmol/L (22-32); Chloride 102 mmol/L (98-107); Glucose 132 mg/dL (80-110); HEMOLYSIS < 15 (0-50); Potassium 4.4 mmol/L (3.4-5.1); Sodium 134 mmol/L (137-145)
[2020-08-11 07:58] LABS: Alanine Aminotransferase 27 IU/L (<35); Albumin Globulin Ratio 1.2 (1.0-2.8); Alkaline Phosphatase 72 U/L (38-126); Aspartate Aminotransferase 36 IU/L (14-36); Bilirubin Total 0.3 mg/dL (0.2-1.3); Bilirubin Unconjugated 0.2 mg/dL (0.0-1.1); Globulin 3.3 g/dL (1.7-4.1); HEMOLYSIS < 15 (0-50); Total Protein 7.3 g/dL (6.3-8.2)
[2020-08-11 08:08] LABS: Troponin I 0.022 ng/mL (0.01-0.034)
[2020-08-11] MEDS: INSULIN LISPRO 100 UNIT/ML 3ML VIAL SUBCUT ×3 (09:54→20:22)
[2020-08-11] MEDS: AMLODIPINE 5 MG TABLET 2.5 MG PO (09:56)
[2020-08-11] MEDS: ISOSORBIDE MONONITRATE ER 30 MG TABLET PO (09:57)
[2020-08-11] MEDS: ASPIRIN 81 MG CHEW TAB PO (09:57)
[2020-08-11] MEDS: PANTOPRAZOLE DR 40 MG TABLET PO (09:58)
[2020-08-11] MEDS: HEPARIN 5,000 UNIT/ML VIAL 5000 UNIT SUBCUT ×2 (10:06→20:21)
[2020-08-11] MEDS: SODIUM CHLORIDE 0.9% FLUSH 10 ML IV ×2 (10:06→20:21)
--- NOTE | 2020-08-11 10:58 | CM.DANOTE ---
DCP: Case received, EMR reviewed and met with patient. Introduced self and role. Was able to obtain information from patient regarding her baseline activity status prior to hospitalization, as well as her current living situation. DCP assessment completed with information currently available. Patient is an 85 year old female who admitted yesterday to the care of the hospitalist team. PCP: Dr. Torres. Payer: confirmed: Medicare. Patient came to the hospital via private vehicle secondary to having an increase in her blood pressure, CHF. She had been over to the acute clinic on [facility] and advised to come to the hospital. Patient holds current diagnosis of CHF/HTN. Met with patient. She was sitting up having her breakfast. Pleasant. She is alert and oriented. Confirmed that she resides in [place] on [facility] alone, and that her daughter, Raquel, lives next door and is her POA. She uses a cane occasionally, and does not drive. P: DCP to continue to follow. Patient should be able to go home when deemed medically stable. Roxana Vergara RN/Business Mgr
--- NOTE | 2020-08-11 12:19 | PM.PN.1 ---
Subjective Subjective Date Patient Seen: 08/11/20 Interval history: The patient is an 85-year-old female who was admitted to the hospital last night for acute decompensated congestive heart failure, patient has a preserved ejection fraction. In addition she had hypertensive urgency with systolics of greater than 200 as well as acute kidney injury. Overnight the patient did receive a dose of Lasix, her losartan was held, her renal function has improved. Her shortness of breath is improved. Patient continues to be hypertensive with a systolic blood pressure greater than 180. Last evening she reported pain in her mid epigastric area radiating down both arms. She has no further pain today. Exam Vital Signs (past 8 hours): - 08/11/20 05:03 08/11/20 08:00 Temperature 98.0 F 97.7 F Pulse Rate 64 63 Respiratory Rate 16 16 Blood Pressure 162/76 H 187/65 H Pulse Oximetry 97 97 Oxygen Delivery Method Room Air Oxygen Flow Rate 0 Narrative Exam Narrative: Pleasant female in no obvious distress, not short of breath, resting comfortably Lungs: Decreased breath sounds but clear to auscultation Cardiac exam: Regular rate and rhythm normal S1-S2 with a 2/6 systolic ejection murmur Abdomen: Nontender nondistended Extremities: No edema Objective Labs Result Diagrams: 08/11/20 07:18 08/11/20 07:18 Labs: Laboratory Results - last 24 hr 08/10/20 08/10/20 08/10/20 13:52 13:52 13:52 WBC 8.2 RBC 3.17 L Hgb 9.8 L Hct 29.9 L MCV 94.2 MCH 30.9 MCHC 32.8 RDW 12.8 Plt Count 238 Neut % (Auto) 57.6 Lymph % (Auto) 32.7 [place] % (Auto) 7.7 Eos % (Auto) 0.9 L Baso % (Auto) 1.1 Neut # (Auto) 4700 Lymph # (Auto) 2700 [place] # (Auto) 600 Eos # (Auto) 100 Baso # (Auto) 100 D-Dimer Sodium 126 L Potassium 5.6 H Chloride 99 Carbon Dioxide 16 L BUN 48 H Creatinine 2.58 H Estimated GFR 17.6 L BUN/Creatinine Ratio 18.6 Glucose 238 H Hemoglobin A1c Calcium 9.0 Phosphorus Magnesium Total Bilirubin 0.3 Conjugated Bilirubin Unconjugated Bilirubin AST 32 ALT 28 Alkaline Phosphatase 61 Total Creatine Kinase 87 CK-MB (CK-2) TNP CK-MB (CK-2) Rel Index TNP Troponin I 0.019 NT-Pro-B Natriuret Pep 2950 H Total Protein 7.0 Albumin 3.8 Globulin 3.2 Albumin/Globulin Ratio 1.2 Lipase 139 TSH Urine RBC Urine WBC Ur Squamous Epith Cells Ur Transition Epith Cell Ur Renal Epithelial Cell Urine Bacteria Hyaline Casts Ur Culture Indicated? Ur Random Sodium SARS-CoV-2 (PCR) 08/10/20 08/10/20 08/10/20 13:52 13:52 13:58 WBC RBC Hgb Hct MCV MCH MCHC RDW Plt Count Neut % (Auto) Lymph % (Auto) [place] % (Auto) Eos % (Auto) Baso % (Auto) Neut # (Auto) Lymph # (Auto) [place] # (Auto) Eos # (Auto) Baso # (Auto) D-Dimer 523 H Sodium Potassium Chloride Carbon Dioxide BUN Creatinine Estimated GFR BUN/Creatinine Ratio Glucose Hemoglobin A1c 6.7 H Calcium Phosphorus Magnesium Total Bilirubin Conjugated Bilirubin Unconjugated Bilirubin AST ALT Alkaline Phosphatase Total Creatine Kinase CK-MB (CK-2) CK-MB (CK-2) Rel Index Troponin I NT-Pro-B Natriuret Pep Total Protein Albumin Globulin Albumin/Globulin Ratio Lipase TSH 1.61 Urine RBC Urine WBC Ur Squamous Epith Cells Ur Transition Epith Cell Ur Renal Epithelial Cell Urine Bacteria Hyaline Casts Ur Culture Indicated? Ur Random Sodium SARS-CoV-2 (PCR) 08/10/20 08/10/20 08/10/20 14:11 15:20 15:20 WBC RBC Hgb Hct MCV MCH MCHC RDW Plt Count Neut % (Auto) Lymph % (Auto) [place] % (Auto) Eos % (Auto) Baso % (Auto) Neut # (Auto) Lymph # (Auto) [place] # (Auto) Eos # (Auto) Baso # (Auto) D-Dimer Sodium Potassium Chloride Carbon Dioxide BUN Creatinine Estimated GFR BUN/Creatinine Ratio Glucose Hemoglobin A1c Calcium Phosphorus Magnesium Total Bilirubin Conjugated Bilirubin Unconjugated Bilirubin AST ALT Alkaline Phosphatase Total Creatine Kinase CK-MB (CK-2) CK-MB (CK-2) Rel Index Troponin I NT-Pro-B Natriuret Pep Total Protein Albumin Globulin Albumin/Globulin Ratio Lipase TSH Urine RBC None seen Urine WBC 5-10/hpf H Ur Squamous Epith Cells 0-1 /hpf Ur Transition Epith Cell 1-5/hpf Ur Renal Epithelial Cell 0-1/hpf Urine Bacteria None seen Hyaline Casts 0-1/lpf Ur Culture Indicated? Specimen cultured Ur Random Sodium 10 L SARS-CoV-2 (PCR) Negative 08/10/20 08/10/20 08/10/20 19:23 19:23 19:23 WBC RBC Hgb Hct MCV MCH MCHC RDW Plt Count Neut % (Auto) Lymph % (Auto) [place] % (Auto) Eos % (Auto) Baso % (Auto) Neut # (Auto) Lymph # (Auto) [place] # (Auto) Eos # (Auto) Baso # (Auto) D-Dimer Sodium Potassium Chloride Carbon Dioxide BUN Creatinine Estimated GFR BUN/Creatinine Ratio Glucose Hemoglobin A1c Calcium Phosphorus 4.8 H Magnesium 1.7 Total Bilirubin Conjugated Bilirubin Unconjugated Bilirubin AST ALT Alkaline Phosphatase Total Creatine Kinase 106 CK-MB (CK-2) 1.21 CK-MB (CK-2) Rel Index 1.1 L Troponin I 0.018 NT-Pro-B Natriuret Pep Total Protein Albumin Globulin Albumin/Globulin Ratio Lipase TSH Urine RBC Urine WBC Ur Squamous Epith Cells Ur Transition Epith Cell Ur Renal Epithelial Cell Urine Bacteria Hyaline Casts Ur Culture Indicated? Ur Random Sodium SARS-CoV-2 (PCR) 08/11/20 08/11/20 08/11/20 01:15 07:18 07:18 WBC RBC Hgb Hct MCV MCH MCHC RDW Plt Count Neut % (Auto) Lymph % (Auto) [place] % (Auto) Eos % (Auto) Baso % (Auto) Neut # (Auto) Lymph # (Auto) [place] # (Auto) Eos # (Auto) Baso # (Auto) D-Dimer Sodium Potassium Chloride Carbon Dioxide BUN Creatinine Estimated GFR BUN/Creatinine Ratio Glucose Hemoglobin A1c Calcium Phosphorus Magnesium 1.5 L Total Bilirubin Conjugated Bilirubin Unconjugated Bilirubin AST ALT Alkaline Phosphatase Total Creatine Kinase 98 97 CK-MB (CK-2) TNP TNP CK-MB (CK-2) Rel Index TNP TNP Troponin I 0.023 0.022 NT-Pro-B Natriuret Pep Total Protein Albumin Globulin Albumin/Globulin Ratio Lipase TSH Urine RBC Urine WBC Ur Squamous Epith Cells Ur Transition Epith Cell Ur Renal Epithelial Cell Urine Bacteria Hyaline Casts Ur Culture Indicated? Ur Random Sodium SARS-CoV-2 (PCR) 08/11/20 08/11/20 08/11/20 07:18 07:18 07:18 WBC 7.6 RBC 3.56 L Hgb 11.0 L Hct 33.0 L MCV 92.7 MCH 30.8 MCHC 33.2 RDW 13.1 Plt Count 267 Neut % (Auto) 62.1 Lymph % (Auto) 25.8 [place] % (Auto) 8.5 Eos % (Auto) 2.8 Baso % (Auto) 0.8 Neut # (Auto) 4700 Lymph # (Auto) 2000 [place] # (Auto) 700 Eos # (Auto) 200 Baso # (Auto) 100 D-Dimer Sodium 134 L Potassium 4.4 D Chloride 102 Carbon Dioxide 24 BUN 45 H Creatinine 1.97 H Estimated GFR 24.0 L BUN/Creatinine Ratio 22.8 H Glucose 132 H D Hemoglobin A1c Calcium 9.7 Phosphorus Magnesium Total Bilirubin 0.3 Conjugated Bilirubin 0.0 Unconjugated Bilirubin 0.2 AST 36 ALT 27 Alkaline Phosphatase 72 Total Creatine Kinase CK-MB (CK-2) CK-MB (CK-2) Rel Index Troponin I NT-Pro-B Natriuret Pep Total Protein 7.3 Albumin 4.0 Globulin 3.3 Albumin/Globulin Ratio 1.2 Lipase TSH Urine RBC Urine WBC Ur Squamous Epith Cells Ur Transition Epith Cell Ur Renal Epithelial Cell Urine Bacteria Hyaline Casts Ur Culture Indicated? Ur Random Sodium SARS-CoV-2 (PCR) PFSH Medical History (HFpEF) heart failure with preserved ejection fraction Diabetes History of anesthesia reaction Hypertension Hypothyroidism Kidney failure Surgical History History of cholecystectomy History of right knee joint replacement Family History Mother History of CVA (cerebrovascular accident) Father Myocardial infarction Social History household members: none Smoking Status: Never smoker alcohol intake: never Assessment & Plan Assessment & Plan narrative: Hypertensive urgency, acute, present on admission -patient noted to be bradycardic with a heart rate of 42 last Evening, she has previously complained of dizziness associated with her antihypertensive therapy specifically the beta-alejandro -heart rate 63 at this time, will hold beta-blockers. -will continue amlodipine, will adjust to 10 mg in the morning -will continue Isordil -will start IV hydralazine for systolic blood pressure of greater than 170 -losartan held given her worsened renal function, consider restarting once her renal function returns to normal 2. Acute kidney injury, present on admission with a creatinine of 2.58 and a GFR of 17.6 -acute kidney injury likely multifactorial -suspect poor perfusion related to her hypertensive urgency, coupled with her losartan -will recheck electrolytes, creatinine BUN the morning -hold losartan until renal function improves -renal ultrasound reveals no hydronephrosis, to rule out renal artery stenosis the patient will need a renal duplex scan which is not done here at this facility, suggest outpatient evaluation for renal artery stenosis 3. History of Grade 2 heart failure -I have ordered a complete echocardiogram for the morning -Discussion with Dr. Talamantes who recommended pharmacological stress testing, will defer to day team on this -Continue Lasix 40 mg IV twice daily -Will order stress testing for the morning 4. Diabetes type 2 with apparent good control since April of this year Her A1c was 6.7 down from 7.1 in April She will be on low-dose insulin correction scale 5. Hyponatremia, acute, present on admission In April she had a low sodium of 132 and today it is 126. I have her on a fluid restriction of 1200 mL per day with a normal sodium carb controlled diet Urine sodium, urine and serum osmolality pending. Serum sodium improved today Will continue follow daily Patient will continue on heparin for DVT prophylaxis
[2020-08-11] MEDS: FUROSEMIDE 40 MG/4 ML VIAL IV ×2 (12:45→19:11)
[2020-08-11] MEDS: AMLODIPINE 5 MG TABLET 7.5 MG PO (12:45)
[2020-08-11] MEDS: ATORVASTATIN 20 MG TABLET 10 MG PO (20:21)
[2020-08-11 21:23] LABS: BUN Creatinine Ratio 30.9 (6-22); Blood Urea Nitrogen 55 mg/dL (7-17); Calcium 9.3 mg/dL (8.4-10.2); Carbon Dioxide 23 mmol/L (22-32); Chloride 103 mmol/L (98-107); Glucose 152 mg/dL (80-110); HEMOLYSIS < 15 (0-50); Potassium 4.8 mmol/L (3.4-5.1); Sodium 135 mmol/L (137-145)
--- NOTE | 2020-08-11 21:50 | PC.NURSE ---
Patient has been resting in the chair this shift. Patient has denied any chest discomfort. Has been A&O, calm and cooperative. Patient aware of stress test in the morning and that she will be NPO after 0500 (per staff in [facility]).
[2020-08-12] VITALS (8 sets, daily range): BP systolic 129–170; BP diastolic 49–68; PULSE 57–78; RESP 15–17; TEMP 36.1–36.6; O2SAT 96–99
[2020-08-12 05:15] LABS: Add Manual Diff / Slide Review NO; Basophils Absolute Auto 100 /uL (0-100); Basophils Percent Auto 1.3 % (0-2); Eosinophils Absolute Auto 300 /uL (0-450); Eosinophils Percent Auto 3.1 % (2-4); Hematocrit 32.2 % (36-46); Hemoglobin 10.5 g/dL (12.0-16.0); Lymphocytes Absolute Auto 3100 /uL (1100-4500); Lymphocytes Percent Auto 36.6 % (25-40); Mean Corpuscular HGB Conc 32.7 % (30-36); Mean Corpuscular Hemoglobin 30.4 PG (26-34); Mean Corpuscular Volume 92.9 fL (80-100); Monocytes Absolute Auto 900 /uL (0-900); Monocytes Percent Auto 10.2 % (3-14); Neutrophils Absolute Auto 4100 /uL (1500-7000); Neutrophils Percent Auto 48.8 % (50-75); Platelet Count 258 X10^3/uL (150-400); Red Blood Cell Count 3.47 X10^6/uL (4.0-5.2); Red Cell Distribution Width 12.9 % (11.6-14.8); White Blood Cell Count 8.4 X10^3/uL (4.5-11.0)
[2020-08-12 05:29] LABS: BUN Creatinine Ratio 33.9 (6-22); Blood Urea Nitrogen 57 mg/dL (7-17); Calcium 9.1 mg/dL (8.4-10.2); Carbon Dioxide 23 mmol/L (22-32); Chloride 104 mmol/L (98-107); Estimated Glomerular Filt Rate 28.9 mL/min (>60); Glucose 134 mg/dL (80-110); HEMOLYSIS < 15 (0-50); Potassium 4.4 mmol/L (3.4-5.1); Sodium 135 mmol/L (137-145)
[2020-08-12 05:30] LABS: Alanine Aminotransferase 24 IU/L (<35); Albumin 3.6 g/dL (3.5-5.0); Albumin Globulin Ratio 1.2 (1.0-2.8); Alkaline Phosphatase 70 U/L (38-126); Aspartate Aminotransferase 24 IU/L (14-36); Bilirubin Total 0.2 mg/dL (0.2-1.3); Bilirubin Unconjugated 0.1 mg/dL (0.0-1.1); Globulin 3.1 g/dL (1.7-4.1); HEMOLYSIS < 15 (0-50); Total Protein 6.7 g/dL (6.3-8.2)
[2020-08-12] MEDS: LEVOTHYROXINE 75 MCG TABLET PO (06:09)
[2020-08-12] MEDS: FUROSEMIDE 40 MG/4 ML VIAL IV (06:09)
[2020-08-12] MEDS: ISOSORBIDE MONONITRATE ER 30 MG TABLET PO (10:27)
[2020-08-12] MEDS: ASPIRIN 81 MG CHEW TAB PO (10:28)
[2020-08-12] MEDS: PANTOPRAZOLE DR 40 MG TABLET PO (10:30)
[2020-08-12] MEDS: INSULIN LISPRO 100 UNIT/ML 3ML VIAL SUBCUT ×3 (10:31→21:04)
[2020-08-12] MEDS: HEPARIN 5,000 UNIT/ML VIAL 5000 UNIT SUBCUT ×2 (10:32→20:15)
[2020-08-12] MEDS: AMLODIPINE 5 MG TABLET PO (10:32)
[2020-08-12] MEDS: SODIUM CHLORIDE 0.9% FLUSH 10 ML IV ×2 (10:39→21:04)
[2020-08-12 11:10] LABS: Osmolality, Serum 296 mOsmol/kg (280-301)
[2020-08-12 11:10] LABS: Osmolality Urine 259 mOsmol/kg (.)
--- NOTE | 2020-08-12 14:57 | CM.DPC ---
Addendum entered by Cyn Keene LPN 08/13/20 09:11: A check in now shows that pt was updated late yesterday re stress test results and plan was then for pt's family to catch early ferry from [place] and take pt back home to the [place] today. IMM #2 presented now. Original Note: DCP: continued: Case received, EMR reviewed. Noted the admission status: face sheet says OBS but do see that the UR RN team confirmed status: INPT: Payer: Medicare Pt now has a d/c order for home. Checked in with her and then with NUBIA Nickerson, caring for pt. Liya reports that the d/c order was placed while the patient was getting the stress test and that the results will not be known still for a couple of hours. Pt confirms same, says she will call her son in law to pick her up when the d/c is certain. She says I was told the tower erector needs to review this. Did suggest that she call her son in law now as he needs to take the ferry from [place] and then they would need to leave on another ferry back. IF she is not able to d/c, he could spend the night in her room is he wished. She was firm in her decision to wait to summon him until the d/c was certain. NUBIA Nickerson is updated and said she was aware that this was the patient's plan.
--- NOTE | 2020-08-12 18:09 | PM.DS.1 ---
History of Present Illness History of Present Illness Chief complaint: on beta blockers, adverse reactions, BP, HR low Narrative: Per Kenzie Gonzalez: Tom Gandhi is an 85 y.o. female with a history of Grade 2 diastolic heart failure, resistent hypertension, diabetes type 2 presented from [facility] after being referred by the clinic nurse to the ED with a hypertensive urgency and a new acute kidney injury. She stated she was recently started on a beta-alejandro and has felt nauseous for the past 3 days and was sick to my stomach since yesterday. She was initiated on labetalol 100 mg by her outside machinist apprentice Dr. Hess 2 days ago. She has taken 2 doses and since then, has gotten dizzy and lightheaded and daughter stated her blood pressure has decreased to systolic in the 90s. She has not taken any yet today and is noted to be quite hypertensive with systolic persistently in the 200s. She complains of being shorter of breath than usual. Stated she has had lower than usual appetite and has chronic nocturnal leg cramps. Yesterday she started having shortness of breath with exertion with mild chest discomfort. She needed to sleep in a recliner which is not usual for her. She currently is not having any chest pain. She has no fever chills cough, dysurea, diarrhea or constipation. Today's EKG indicated a left bundle branch block, per note from , her outside machinist apprentice, she had a left bundle branch block in an EKG done in July of 2019 which at that time was new. Chest x-ray ordered in the emergency department indicated large lung volumes suggesting COPD an elderly female without a smoking history. She is afebrile, blood pressure 179/70 it had been as high as 220/87 in the emergency department, heart rate 64, respiratory rate 16, oxygen saturation of 99% on room air, she weighs 71.6 kg with a BMI of 31.2. She has mildly anemia at with a hemoglobin and hematocrit of 9.8 and 29.9 respectively, platelet count is 238, D-dimer was 523 which is negative for patient of her age, sodium 126, potassium 5.6, chloride 99, CO2 16, BUN 48, creatinine 2.58 with a GFR of 17.6, glucose 238, hemoglobin A1c is 6.7, phosphorus is 4.8, CK-MB was 1.1, proBNP was 29 50, UA was negative for UTI and COVID-19 PCR is negative. Patient's med records were scanned into the chart which included labs and an encounter from April of 2020 as well as a note from Dr. Hess. She has been on multiple blood pressure medications, not always maxed out and he commented that it was hard to keep her blood pressure under good control without her becoming symptomatic. She had impaired renal function as of April of this year with a creatinine of 1.18 and a GFR of 42, it is significantly reduced from this today and she also has an elevated phosphorus. I did discuss her case with Dr. Talamantes, on-call outside machinist apprentice at [facility] and he recommended diuresis, controlling her blood pressure, and treating her ELIAZAR. Dr. Hess noted that she had grade 2 diastolic dysfunction in an echocardiogram done in 2016 which we do not have access to. Discharge Providers Provider Date of admission: 08/10/20 16:04 Discharge Date: 08/12/20 Primary care physician: Olesya Torres PA-C Discharge provider: Iker Ceballos MD Summary Hospital Course Discharge Diagnosis: 1. Symptomatic bradycardia from beta-alejandro 2. Acute kidney injury on CKD 3. Hypertensive urgency 4. Acute on chronic diastolic heart failure 5. Type 2 Diabetes 6. Mild hyponatremia 7. Mild anemia Hospital Course: Ms. Gandhi initially came in for symptomatic bradycardia with hypotension, dizziness after being recently started on labetalol. She had her labetalol stopped and was put on amlodipine at higher dose at 5mg daily. Her creatinine peaked at 2.6. Creatinine at discharge improved to 1.6. She was also diursed due to concern for acute CHF exacerbation. Her ECHO showed a preserved ejection fraction and no focal wall motion abnormality. Renal ultrasound showed no acute renal process. She should follow up further as an outpatient for this and may consider possible renal artery stenosis. Her ARB was initially held given her renal dysfunction and this should be restarted as an outpatient. In addition she had glimepiride and metformin held while in the hospital due to her renal dysfunction. Metformin should be continued to be held until renal function improves further. She had a stress test done that did not show any evidence of ischemia. She is planned to be discharged and recommended to follow closely with her PCP, and in addition she requests a new cardiology referral as her outside machinist apprentice is in [place] and she lives on [facility] and the distance is prohibitive for her. She will be referred to [facility] clinic.y Exam Vital Signs (past 8 hours): - 08/12/20 12:00 08/12/20 16:57 Temperature 97.7 F 97.8 F Pulse Rate 67 68 Respiratory Rate 17 16 Blood Pressure 129/49 L 144/54 H Pulse Oximetry 99 99 Oxygen Delivery Method Room Air Oxygen Flow Rate 0 Narrative Exam Narrative: Pleasant female in no obvious distress, not short of breath, resting comfortably Lungs: Decreased breath sounds but clear to auscultation Cardiac exam: Regular rate and rhythm normal S1-S2 with a 2/6 systolic ejection murmur Abdomen: Nontender nondistended Extremities: No edema Objective Labs Result Diagrams: 08/12/20 04:40 08/12/20 04:40 Labs: Laboratory Results - last 24 hr 08/10/20 08/11/20 08/11/20 15:20 01:15 20:57 WBC RBC Hgb Hct MCV MCH MCHC RDW Plt Count Neut % (Auto) Lymph % (Auto) [place] % (Auto) Eos % (Auto) Baso % (Auto) Neut # (Auto) Lymph # (Auto) [place] # (Auto) Eos # (Auto) Baso # (Auto) Sodium 135 L Potassium 4.8 Chloride 103 Carbon Dioxide 23 BUN 55 H Creatinine 1.78 H Estimated GFR 27.0 L BUN/Creatinine Ratio 30.9 H Glucose 152 H Serum Osmolality 296 Calcium 9.3 Total Bilirubin Conjugated Bilirubin Unconjugated Bilirubin AST ALT Alkaline Phosphatase Total Protein Albumin Globulin Albumin/Globulin Ratio Urine Osmolality 259 08/12/20 08/12/20 08/12/20 04:40 04:40 04:40 WBC 8.4 RBC 3.47 L Hgb 10.5 L Hct 32.2 L MCV 92.9 MCH 30.4 MCHC 32.7 RDW 12.9 Plt Count 258 Neut % (Auto) 48.8 L Lymph % (Auto) 36.6 [place] % (Auto) 10.2 Eos % (Auto) 3.1 Baso % (Auto) 1.3 Neut # (Auto) 4100 Lymph # (Auto) 3100 [place] # (Auto) 900 Eos # (Auto) 300 Baso # (Auto) 100 Sodium 135 L Potassium 4.4 Chloride 104 Carbon Dioxide 23 BUN 57 H Creatinine 1.68 H Estimated GFR 28.9 L BUN/Creatinine Ratio 33.9 H Glucose 134 H Serum Osmolality Calcium 9.1 Total Bilirubin 0.2 Conjugated Bilirubin 0.0 Unconjugated Bilirubin 0.1 AST 24 ALT 24 Alkaline Phosphatase 70 Total Protein 6.7 Albumin 3.6 Globulin 3.1 Albumin/Globulin Ratio 1.2 Urine Osmolality [facility] Medical History (HFpEF) heart failure with preserved ejection fraction Diabetes History of anesthesia reaction Hypertension Hypothyroidism Kidney failure Surgical History History of cholecystectomy History of right knee joint replacement Family History Mother History of CVA (cerebrovascular accident) Father Myocardial infarction Social History household members: none Smoking Status: Never smoker alcohol intake: never Discharge Plan Discharge Plan Patient Disposition: Home Provider Discharge Comment: Ms. Gandhi came in with congestive heart failure, low heart rate and kidney injury. She had a reaction previously to her beta-alejandro with her blood pressure dropping significantly. This was held here in the hospital. She did get IV lasix with urine output. She had a stress test of her heart which showed no evidence of blockage. She should remain off beta-blockers and follow up with cardiology. She requested a referral to see a new outside machinist apprentice that is closer than [place]. Discharge orders & Medications Prescriptions: Continued metformin 500 mg tablet 1,000 mg PO BID RF: 0 losartan 50 mg tablet 50 mg PO BID RF: 0 magnesium oxide 500 mg tablet 500 mg PO DAILY RF: 0 pantoprazole 40 mg tablet,delayed release (DR/EC) 40 mg PO DAILY RF: 0 triamcinolone acetonide 55 mcg aerosol,spray 1 spray intranasal DAILY RF: 0 simvastatin 10 mg tablet 10 mg PO QPM RF: 0 pyridoxine (vitamin B6) 25 mg tablet 25 mg PO DAILY RF: 0 furosemide [Lasix] 20 mg tablet 40 mg PO DAILY RF: 0 aspirin 81 mg tablet,chewable 81 mg PO DAILY RF: 0 amlodipine 2.5 mg tablet 2.5 mg PO DAILY RF: 0 ascorbic acid (vitamin C) 500 mg capsule 500 mg PO DAILY RF: 0 glimepiride 4 mg tablet 4 mg PO BID RF: 0 levothyroxine 75 mcg tablet 75 mcg PO QAM RF: 0 loratadine [Claritin] 10 mg tablet 10 mg PO DAILY RF: 0 isosorbide mononitrate 30 mg tablet extended release 24 hr 30 mg PO DAILY RF: 0 hydralazine 10 mg tablet See Rx Instructions .ROUTE .COMPLEX RF: 0 pmsiaxyzexnr-tvxtqqhn-bnoozt Tablet 1 tab PO DAILY RF: 0 Follow up/Referrals: Michelle Love MD [Physician] - (difficult to control hypertension, side effects from beta-alejandro, requesting new cardiology referral, due to living far from [place] where she has been going) Olesya Torres, PA-C [Primary Care Provider] - Diet/Activity/Treatments Diet: Low-sodium Discharge Data Primary Care Provider: Olesya Torres
--- NOTE | 2020-08-12 19:55 | DI.NM.S_ITS ---
DATE OF SERVICE: 08/12/2020 PROCEDURE: Pharmacological perfusion study. INDICATIONS: Chest pain with underlying diabetes mellitus, hypertension, left bundle branch block. RADIOPHARMACEUTICAL: 25.7 millicurie technetium-99m Myoview IV was injected at stress and 13.1 millicurie technetium-99m Myoview IV was injected at rest. Stress. The patient received IV Lexiscan as per standard protocol. She remained hemodynamically stable. She felt some mild shortness of breath. Baseline rhythm was sinus with left bundle branch block and occasional PVCs. During stress, no new convincing ischemic changes. The patient remained in sinus rhythm with left bundle branch block. No chest pain. RAW DATA: There is increased subdiaphragmatic activity. GATED STUDY: Stress LV ejection fraction is 74 percent without any obvious wall motion abnormalities. Resting end-diastolic volume 65 mL. TID ratio 1.16, which is within normal limits. Lung/heart ratio 0.31, which is within normal limits. MYOCARDIAL PERFUSION SCAN: Stress supine and resting supine images revealed normal myocardial perfusion. CONCLUSION: This is a normal myocardial perfusion study. Preserved left ventricular function. Underlying left bundle branch block. Overall, this is a low-risk myocardial perfusion study. Tom Gandhi - KATHYA/jyoti/brien doc#: [id number]/job#: [id number] dd: 08/12/2020 16:40:00 dt: 08/12/2020 19:45:00 DICTATING /COPIES TO: Michelle Love MD COPIES MNE: LADONNA;
[2020-08-12] MEDS: ATORVASTATIN 20 MG TABLET 10 MG PO (20:14)
--- NOTE | 2020-08-12 21:05 | PC.NURSE ---
Uneventful evening shift with this pleasant patient. Patient received stress test results (negative) at 1640, too late to be able to make the ferry home to [place]. Plan is for family member to take the early ferry out from [place] to [place] and pt d/c tomorrow. Pt denies any pain, n/v/SOB. Pt sat up to chair for a few hours, is independently ambulatory. V/s stable, no issues with elevated BP on this shift. Dr. Ceballos came to speak with pt about stress test results and plan of care at 1645.
[2020-08-13] VITALS: BP 154/65; PULSE 71; RESP 15; TEMP 37.2; O2SAT 97
--- NOTE | 2020-08-13 04:28 | PC.NURSE ---
Patient is alert and oriented. Breath sounds CTA with RA sat of 97%. HRR w/telemetry reading of SR w/BBB and at 0400 SR. BP elevated at 154/65 but below the threshold for IV Hydralazine. Denies nausea. BT present and is passing flatus. Denies dysuria, frequency or urgency with urination. Is independent with bed mobility and getting up to BSC independently. Denies pain. Fall risk score is moderate but no need for bed alarm at this time as is steady on feet.
[2020-08-13 05:05] VITALS: BP 142/62; PULSE 67; RESP 16; TEMP 36.5; O2SAT 97
[2020-08-13 05:44] LABS: BUN Creatinine Ratio 37.6 (6-22); Blood Urea Nitrogen 62 mg/dL (7-17); Calcium 8.8 mg/dL (8.4-10.2); Carbon Dioxide 22 mmol/L (22-32); Chloride 103 mmol/L (98-107); Estimated Glomerular Filt Rate 29.5 mL/min (>60); Glucose 161 mg/dL (80-110); HEMOLYSIS < 15 (0-50); Potassium 4.4 mmol/L (3.4-5.1); Sodium 133 mmol/L (137-145)
[2020-08-13] MEDS: LEVOTHYROXINE 75 MCG TABLET PO (06:34)
[2020-08-13 07:35] VITALS: O2SAT 95
[2020-08-13 07:50] VITALS: BP 180/71; PULSE 57; RESP 16; TEMP 36.2; O2SAT 98
[2020-08-13 08:03] VITALS: BP 179/71
[2020-08-13] MEDS: HYDRALAZINE 20 MG/ML VIAL 10 MG IV (08:03)
[2020-08-13] MEDS: HEPARIN 5,000 UNIT/ML VIAL 5000 UNIT SUBCUT (08:06)
[2020-08-13] MEDS: PANTOPRAZOLE DR 40 MG TABLET PO (08:06)
[2020-08-13] MEDS: AMLODIPINE 5 MG TABLET PO (08:06)
[2020-08-13] MEDS: ISOSORBIDE MONONITRATE ER 30 MG TABLET PO (08:06)
[2020-08-13] MEDS: ASPIRIN 81 MG CHEW TAB PO (08:06)
[2020-08-13] MEDS: INSULIN LISPRO 100 UNIT/ML 3ML VIAL SUBCUT (08:08)
--- NOTE | 2020-08-13 09:34 | PC.NURSE ---
Day shift: Paperwork signed and all questions answered. Pt has all personal belongings and new MD script. Taken to car driven by her daughter. Taken via WC by EBONIE. HAs ferry boarding pass also. Pt stated I'm happy to be leaving this early today so I can catch the ferry home. Pt was going to d/c yesterday.
--- NOTE | 2020-08-13 14:10 | PM.PN.1 ---
Subjective Subjective Date Patient Seen: 08/13/20 Time Patient Seen: 08:10 Interval history: Patient was discharged last night after negative stress test, but did not leave due to transportation issues. Exam Vital Signs (past 8 hours): - 08/13/20 07:35 08/13/20 07:50 08/13/20 08:03 Temperature 97.1 F L Pulse Rate 57 L Respiratory Rate 16 Blood Pressure 180/71 H 179/71 H Pulse Oximetry 95 98 Oxygen Delivery Method Room Air Oxygen Flow Rate 0 Narrative Exam Narrative: Pleasant female in no obvious distress, not short of breath, resting comfortably Lungs: Decreased breath sounds but clear to auscultation Cardiac exam: Regular rate and rhythm normal S1-S2 with a 2/6 systolic ejection murmur Abdomen: Nontender nondistended Extremities: No edema Objective Labs Result Diagrams: 08/12/20 04:40 08/13/20 05:12 Labs: Laboratory Results - last 24 hr 08/13/20 05:12 Sodium 133 L Potassium 4.4 Chloride 103 Carbon Dioxide 22 BUN 62 H Creatinine 1.65 H Estimated GFR 29.5 L BUN/Creatinine Ratio 37.6 H Glucose 161 H Calcium 8.8 PFSH Medical History (HFpEF) heart failure with preserved ejection fraction Diabetes History of anesthesia reaction Hypertension Hypothyroidism Kidney failure Surgical History History of cholecystectomy History of right knee joint replacement Family History Mother History of CVA (cerebrovascular accident) Father Myocardial infarction Social History household members: none Smoking Status: Never smoker alcohol intake: never Assessment & Plan Assessment & Plan narrative: Patient stayed overnight due to transportation issues. No significant changes to the discharge summary aside from what is noted: She will hold losartan for now due to her kidney dysfunction, can restart when she sees her PCP. She was given a higher dose of amlodipine due to holding this medication. She is recommended to be off of beta-blockers for now given her side effects. 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
== END 2020-08-13 09:36 | disposition home or self-care (01) | DRG 682 ==
LOC: ED 16:04 → AC 08-11 06:52
PROVIDERS: Internal Medicine; Nurse Practitioner Family; Admitting Provider Internal Medicine; Emergency Provider Emergency Medicine; PCP Physician Assistant Medical; Referring Provider Emergency Medicine; Visit Provider Internal Medicine
DX: N17.9 Acute kidney failure, unspecified (principal); I50.33 Acute on chronic diastolic (congestive) heart failure; E87.1 Hypo-osmolality and hyponatremia; I11.0 Hypertensive heart disease with heart failure; I16.0 Hypertensive urgency; E11.9 Type 2 diabetes mellitus without complications; I44.7 Left bundle-branch block, unspecified; R00.1 Bradycardia, unspecified; T44.8X5A Adverse effect of centrally-acting and adrenergic-neuron-blocking agents, initial encounter; Z79.84 Long term (current) use of oral hypoglycemic drugs; Z20.822 Contact with and (suspected) exposure to COVID-19
CPT/HCPCS: 36415; 36592; 51798; 71045; 76770; 78452; 80048; 80053; 80076; 81003; 81015; 82397; 82550; 82553; 82962; 83036; 83690; 83735; 83880; 83930; 83935; 84100; 84300; 84443; 84484; 85025; 85379; 87086; 87635; 93005; 93010; 93016; 93017; 93018; 93306; 96374; 99284; C9803; A9502; J0360; J1644; J1815; J1940; J2785

== ENCOUNTER → 2020-11-03 19:21 | Outpatient (ROUT) | payer OTHER, MEDICARE, SELFPAY ==
[2020-08-10 18:05] VITALS: BMI 31.2
[2020-11-03 19:48] LABS: BUN Creatinine Ratio 33.8 (6-22); Blood Urea Nitrogen 51 mg/dL (7-17); Calcium 8.9 mg/dL (8.4-10.2); Carbon Dioxide 31 mmol/L (22-32); Chloride 96 mmol/L (98-107); Estimated Glomerular Filt Rate 32.7 mL/min (>60); Glucose 125 mg/dL (80-110); HEMOLYSIS 24 (0-50); Potassium 4.5 mmol/L (3.4-5.1); Sodium 132 mmol/L (137-145)
== END ==
PROVIDERS: PCP Physician Assistant Medical; Visit Provider Family Medicine
DX: I50.32 Chronic diastolic (congestive) heart failure (principal); N18.4 Chronic kidney disease, stage 4 (severe)
CPT/HCPCS: 80048